=== PATIENT | male | born 1985 | race Caucasian/White ===

== ENCOUNTER 2024-04-30 06:57 | Day surgery (SDC) | payer BC ==
[2024-04-28 14:06] VITALS: BMI 29.0
[2024-04-30] MEDS ORDERED: EPINEPHrine 1 MG/ML VIAL ONE (07:01)
[2024-04-30] MEDS ORDERED: Lidocaine 1% w/Epinephrine 1:200K 30 ML VIAL ONE (07:02)
[2024-04-30] MEDS ORDERED: Ciprofloxacin 0.3% Ophth Soln 2.5 ml Bottle ONE (07:02)
[2024-04-30] MEDS ORDERED: Mupirocin 2% Ointment 22 GM Tube ONE (07:02)
[2024-04-30] MEDS ORDERED: PROPOFOL 20 ML ONE (09:24)
[2024-04-30] MEDS ORDERED: Rocuronium Bromide 10 MG/ML (10ML VIAL) ONE (09:24)
[2024-04-30] MEDS ORDERED: Fentanyl 250 MCG/5 ML VIAL ONE (09:24)
[2024-04-30] MEDS ORDERED: Dexamethasone 4 mg/ml Vial ONE (09:24)
[2024-04-30] MEDS ORDERED: Lidocaine 1% PF 5 ML VIAL ONE (09:24)
[2024-04-30] MEDS ORDERED: Ondansetron PF 4 MG/2 ML Vial ONE (09:24)
[2024-04-30] MEDS ORDERED: SUGAMMADEX SODIUM 200 MG/2 ML VIAL ONE (09:52)
[2024-04-30] MEDS ORDERED: Ondansetron ODT 4 MG TAB ONE (12:20)
== END 2024-04-30 12:30 | disposition home or self-care (01) ==
LOC: CSHSDC 06:57
PROVIDERS: ATTEND Specialist
PROC: 09U877Z Supplement Left Tympanic Membrane with Autologous Tissue Substitute, Via Natural or Artificial Opening (ICD-10-PCS; principal; 2024-04-30)
DX: H72.92 Unspecified perforation of tympanic membrane, left ear (principal); H91.92 Unspecified hearing loss, left ear; H66.90 Otitis media, unspecified, unspecified ear; F17.200 Nicotine dependence, unspecified, uncomplicated; Z98.890 Other specified postprocedural states
CPT/HCPCS: J0171; J1100; J2405; J2704; J3010; Q0162